=== PATIENT | male | born 1975 ===

== ENCOUNTER 2017-11-20 06:36 | Day surgery (SDC) | payer BC ==
[2016-05-29 07:30] VITALS: BMI 46.9
[2017-11-20] MEDS ORDERED: Lactated Ringer's 1,000 ML IV ONE ×2 (08:11)
[2017-11-20] MEDS ORDERED: Propofol 10 mg/ml Inj (20 ML) ONE ×2 (08:23)
[2017-11-20] MEDS ORDERED: Etomidate 20 mg/10ml Inj IV ONE (08:38)
[2017-11-20 10:32] VITALS: TEMP 97
[2017-11-20 10:34] VITALS: O2SAT 99
[2017-11-20 10:39] VITALS: BP 128/72; PULSE 75; RESP 18
== END 2017-11-20 10:00 | disposition home or self-care (01) ==
LOC: C.ENDO 06:36
PROVIDERS: ATTEND Internal Medicine Gastroenterology
DX: K29.70 Gastritis, unspecified, without bleeding (principal); E66.01 Morbid (severe) obesity due to excess calories; K44.9 Diaphragmatic hernia without obstruction or gangrene
CPT/HCPCS: 43239; 88305; J2001; J2704; J7120